=== PATIENT | female | born 1970 | race African-American/Black ===

== ENCOUNTER 2017-03-27 14:46 | Emergency (ER) | payer OTHER ==
[~2017-03-27 14:46] MED LIST: ALLEGRA180 MG PO; AMBIEN 10 MG TA10 MG PO; AMOX TR-K CLV1 EAC4 PO; BIRTH CONTROL; BIRTH CONTROL PILL PO; CELEXA 20 MG TA20 M1 PO; FLONASE 0.05%50 MCG NASAL; METOPROLOL SUCC25 M1 PO; MUCINEX600 MG PO; MULTIVITAMINS1 EAC7 PO; NASONEX17 GM NS; NORCO 5-325 TA1 EACH PO; NYSTATIN 1100000 U/M SW&SWALLOW; NYSTATIN1 EA10 PO; PRILOSEC 20 MG20 MG PO; PROTONIX40 M2 PO
[2017-03-27 15:01] VITALS: BP 161/109
[2017-03-27 15:08] LABS: URINE BILIRUBIN NEGATIVE (Negative); URINE BLOOD NEGATIVE (Negative); URINE COLOR YELLOW; URINE GLUCOSE-RANDOM* NEGATIVE (Negative); URINE KETONES NEGATIVE (Negative); URINE NITRITE NEGATIVE (Negative); URINE PROTEIN (DIPSTICK) NEGATIVE (Negative); URINE SPECIFIC GRAVITY 1.025 (1.003-1.035); URINE UROBILINOGEN 0.2 E.U./dl (0.2-1.0)
== END 2017-03-27 15:38 | disposition left against medical advice (07) ==
LOC: ER 14:46
PROVIDERS: Physician Assistant
DX: Z53.21 Procedure and treatment not carried out due to patient leaving prior to being seen by health care provider (principal)

== ENCOUNTER 2020-03-13 20:47 | Emergency (ER) | payer OTHER ==
[~2020-03-13] VITALS: Ht 167.6 cm; Wt 64.9 kg
[2020-03-13 22:16] LABS: ABSOLUTE NEUTROPHILS 1.6 thou/uL (1.4-8.2); BASOPHILS 1.6 % (0.0-2.0); EOSINOPHILS 7.1 % (0.0-3.0); HEMATOCRIT 39.2 % (37.0-47.0); HEMOGLOBIN 13.2 gm/dL (12.0-15.0); LYMPHOCYTES 44.3 % (24.0-44.0); MCH 30.6 pg (26.0-34.0); MCHC 33.5 g/dL (28.0-37.0); MCV 91.2 fL (80.0-100.0); MONOCYTES 9.8 % (1.0-8.0); PLATELET COUNT 257 thou/uL (150-400); POLYS 37.2 % (36.0-66.0); RDW 13.7 % (10.5-14.5); WBC 4.3 thou/uL (4.0-11.0)
[2020-03-13 22:23] LABS: ANION GAP 3 mmol/L (7-16); BUN 10 mg/dL (7-18); CALCIUM 8.6 mg/dL (8.5-10.1); CHLORIDE 104 mmol/L (98-107); CO2 32 mmol/L (21-32); CREATININE 0.8 mg/dL (0.6-1.0); GLUCOSE 101 mg/dL (74-106); POTASSIUM 4.2 mmol/L (3.5-5.1); SODIUM 139 mmol/L (136-145)
[2020-03-13 22:30] LABS: ALBUMIN 3.6 g/dL (3.4-5.0); DIRECT BILIRUBIN < 0.1 mg/dL (<0.1-0.2); MAGNESIUM 1.9 mg/dL (1.8-2.4); SGOT 24 U/L (15-37); SGPT 29 U/L (30-65); TOTAL BILIRUBIN 0.8 mg/dL (0.2-1.0); TOTAL PROTEIN 7.8 g/dL (6.4-8.2)
[2020-03-13] MEDS ORDERED: NICOTINE TRANSD14 M1 TRANSDERM (23:30)
[2020-03-13 23:36] VITALS: BP 118/73
--- NOTE | 2020-03-14 08:13 | EKG ---
[facility] [place] [address] ELECTROCARDIOGRAM REPORT Name: SHANNAN VEGA Room #: DEP [facility]#: [id number] Admission: 03/13/20 Attend Phys: Discharge: 03/13/20 Date of : 66 Report #: [id number] THIS REPORT FOR: cc: TR - No family physician/PCP FAM - No family physician/PCP Hernan Aiken MD [facility] THIS REPORT FOR: //name// [facility] ED Test Date: 2020-03-13 Test Time: 20:54:10 Pat Name: SHANNAN VEGA Department: Room: 3 Gender: F [employer]: TAMIKO : 1970 Requested By: Order Number: [id number] MD: Hernan Aiken Measurements Intervals [place] Rate: 67 P: 71 CA: 173 QRS: 44 QRSD: 94 T: 58 QT: 440 QTc: 465 Interpretive Statements Sinus rhythm No significant abnormality No previous ECG available for comparison Electronically Signed On 03-14-2020 8:11:21 CDT by Hernan Aiken [email or web address] <ELECTRONICALLY SIGNED> By: Hernan Aiken MD, FAC 03/14/20 0811 [id number] 53 Hernan Aiken MD, [facility] /EPI
== END 2020-03-13 23:43 | disposition home or self-care (01) ==
LOC: ER 20:47
PROVIDERS: Emergency Medicine
DX: R00.2 Palpitations (principal); F17.210 Nicotine dependence, cigarettes, uncomplicated; Z79.899 Other long term (current) drug therapy

== ENCOUNTER 2021-07-04 05:19 | Emergency (ER) | payer BC ==
[~2021-07-04] VITALS: Ht 167.6 cm; Wt 65.8 kg
[~2021-07-04 05:19] MED LIST changes: +NICOTINE TRANSD14 M1 TRANSDERM
[2021-07-04 05:20] VITALS: BP 141/85
[2021-07-04] MEDS ORDERED: ELDERBERRY-VIT1 EACH PO (05:25)
== END 2021-07-04 07:22 | disposition left against medical advice (07) ==
LOC: ER 05:19
DX: S40.011A Contusion of right shoulder, initial encounter (principal); F17.210 Nicotine dependence, cigarettes, uncomplicated; Z98.890 Other specified postprocedural states; Z79.899 Other long term (current) drug therapy; Z53.21 Procedure and treatment not carried out due to patient leaving prior to being seen by health care provider; W18.30XA Fall on same level, unspecified, initial encounter; Y93.89 Activity, other specified; Y92.89 Other specified places as the place of occurrence of the external cause; Y99.8 Other external cause status